=== PATIENT | female | born 1955 | race Caucasian/White ===

== ENCOUNTER → 2017-07-05 | Outpatient (CLI) | payer OTHER | END | disposition home or self-care (01) | LOC: LABPAT 14:03 | PROVIDERS: ATTEND Orthopaedic Surgery | DX: Z01.812 Encounter for preprocedural laboratory examination (principal) | CPT/HCPCS: 87070 ==

== ENCOUNTER → 2017-07-08 | Outpatient (CLI) | payer OTHER ==
[2017-07-08 14:25] LABS: Basophils # (A) 0.1 k/uL (0-0.2); Basophils % (A) 1 %; CH 30.3; Eosinophils # (A) 0.1 k/uL (0-0.7); Eosinophils % (A) 2 %; HDW 2.22; Luc % (Auto) 2; Lymphocytes # (A) 3.1 k/uL (1.0-4.8); Lymphocytes % (A) 44 %; MCHC 32.5 g/dL (31.0-37.0); MCV 92.3 fL (80.0-100.0); Mean Platelet Volume 7.1; Monocytes # (A) 0.4 k/uL (0-1.0); Monocytes % (A) 6 %; Neutrophils # (A) 3.2 k/uL (1.3-7.7); Neutrophils % (A) 46 %; RBC 4.66 m/uL (3.80-5.40); RDW 13.5 % (11.5-15.5); WBC 6.9 k/uL (3.8-10.6); WBC (Perox) 7.08
[2017-07-08 14:36] LABS: Partial Thromboplastin Time 22.2 sec (22.0-30.0); Prothrombin Time 10.1 sec (9.0-12.0)
[2017-07-08 14:52] LABS: Potassium 4.6 mmol/L (3.5-5.1)
== END | disposition home or self-care (01) ==
LOC: LABPAT 13:46
PROVIDERS: ATTEND Orthopaedic Surgery
DX: Z01.812 Encounter for preprocedural laboratory examination (principal); M16.12 Unilateral primary osteoarthritis, left hip; Z79.01 Long term (current) use of anticoagulants
CPT/HCPCS: 80051; 85025; 85610; 85730

== ENCOUNTER → 2017-07-08 | Outpatient (CLI) | payer OTHER ==
[2017-07-08 14:25] LABS: Appearance,Urine Clear (Clear); Bilirubin,Urine Negative (Negative); Glucose,Urine (UA) Negative (Negative); Ketones,Urine Negative (Negative); Leukocyte Esterase,Urine Negative (Negative); Nitrite,Urine Negative (Negative); Protein,Urine Negative (Negative); Specific Gravity,Urine 1.002 (1.001-1.035); UA Billing (MACRO vs. MICRO) CHEM; Urobilinogen,Urine <2.0 mg/dL (<2.0)
[2017-07-08 14:52] LABS: ALT 86 U/L (9-52); AST 36 U/L (14-36); Blood Urea Nitrogen 14 mg/dL (7-17); Non-African American GFR(MDRD) >60 (>60 ml/min/1.73 sqM)
== END | disposition home or self-care (01) ==
LOC: LABWHC1 13:49
PROVIDERS: ATTEND Internal Medicine
DX: Z01.812 Encounter for preprocedural laboratory examination (principal)
CPT/HCPCS: 36415; 81003; 82565; 84450; 84460; 84520

== ENCOUNTER → 2017-09-21 | Outpatient (CLI) | payer OTHER ==
[2017-09-21 13:18] LABS: Basophils # (A) 0.1 k/uL (0-0.2); Basophils % (A) 1 %; Eosinophils # (A) 0.1 k/uL (0-0.7); Eosinophils % (A) 2 %; HCT 42.7 % (34.0-46.0); Lymphocytes # (A) 3.3 k/uL (1.0-4.8); Lymphocytes % (A) 48 %; MCH 29.5 pg (25.0-35.0); MCHC 33.3 g/dL (31.0-37.0); MCV 88.6 fL (80.0-100.0); Mean Platelet Volume 6.7; Monocytes # (A) 0.3 k/uL (0-1.0); Monocytes % (A) 5 %; Neutrophils % (A) 43 %; Platelet Count 345 k/uL (150-450); RBC 4.82 m/uL (3.80-5.40); RDW 12.3 % (11.5-15.5); WBC 6.9 k/uL (3.8-10.6)
[2017-09-21 13:22] LABS: HGB 14.2 gm/dL (11.4-16.0)
[2017-09-21 13:31] LABS: Potassium 4.6 mmol/L (3.5-5.1)
[2017-09-21 13:37] LABS: Prothrombin Time 9.7 sec (9.0-12.0)
== END | disposition home or self-care (01) ==
LOC: LABPAT 12:40
PROVIDERS: ATTEND Orthopaedic Surgery
DX: Z01.812 Encounter for preprocedural laboratory examination (principal); M16.11 Unilateral primary osteoarthritis, right hip; Z79.01 Long term (current) use of anticoagulants
CPT/HCPCS: 36415; 80051; 85025; 85610; 85730; 87070

== ENCOUNTER 2017-10-03 05:42 | Inpatient (IN) | payer OTHER ==
--- NOTE | 2017-10-02 12:49 | HP ---
HISTORY AND PHYSICAL REASON FOR ADMISSION: Surgery is scheduled for 10/03/2017 Staci Evans is a 62-year-old patient seen with symptomatic right hip osteoarthritis. We discussed treatment options. She elected to proceed with right total hip arthroplasty. Consent regarding procedure was obtained. PAST MEDICAL HISTORY: Noncontributory. PAST SURGICAL HISTORY: Left total hip arthroplasty. MEDICATIONS: None reported. SOCIAL HISTORY: Smokes half pack cigarettes daily. PHYSICAL EXAMINATION: Evaluation right hip, there is a limited range of motion with significant pain. Positive hip impingement sign. Straight leg raise negative. Distal neurovascular exam is intact. RADIOGRAPHS: Radiographs of the right hip reveals severe osteoarthritis. IMPRESSION: 1. Right hip osteoarthritis. 2. Tobacco use. PLAN: Right total hip arthroplasty. Surgery scheduled for 10/03/2017. MMODL / IJN: [id number] /
[~2017-10-03 05:42] MED LIST: ACETAMINOPHEN TAB 500 MG TAB PO ONE; DEXAMETHASONE SOD PHOSPHATE 10 MG/ML 1 ML VIAL IV ONE; LACTATED RINGERS 1,000 ML IV SCH; MELOXICAM 7.5 MG TAB PO ONE; MIDAZOLAM 2 MG/2 ML VIAL IV PRN; MORPHINE SULFATE 4 MG/ML SYRINGE IV PRN; ONDANSETRON 4 MG/2 ML VIAL IVP ONE; SCOPOLAMINE 1.5MG/72HR PATCH TRANSDERM ONE; TRANEXAMIC ACID 1,000 MG in SODIUM CHLORIDE 0.9% 50 ML IVPB ONE; ceFAZolin IN SWFI 2 GM/20 ML SYRINGE IVP ONE
[2017-10-03] MEDS ORDERED: SODIUM CHLORIDE 0.9% 100 ML BAG ONE (07:25)
[2017-10-03] MEDS ORDERED: LIDOCAINE 1% INJ 10MG/ML (20 ML MDV) ONE (07:25)
[2017-10-03] MEDS ORDERED: GLYCOPYRROLATE 0.2 MG/ML 2 ML VIAL ONE (07:25)
[2017-10-03] MEDS ORDERED: TRANEXAMIC ACID 1,000 MG/10 ML VIAL ONE (07:25)
[2017-10-03] MEDS ORDERED: fentaNYL (PF) 50 MCG/ML 2 ML AMP ONE (07:25)
[2017-10-03] MEDS ORDERED: diphenhydrAMINE 50 MG/ML 1 ML VIAL ONE (07:25)
[2017-10-03] MEDS ORDERED: PROPOFOL 10 MG/ML 20 ML VIAL IV ONE (07:25)
[2017-10-03] MEDS ORDERED: MIDAZOLAM 2 MG/2 ML VIAL ONE (07:25)
[2017-10-03] MEDS ORDERED: PHENYLEPHRINE-0.9% NACL SYG 1 MG/10 ML SYRINGE ONE (07:25)
[2017-10-03] MEDS ORDERED: KETAMINE 10 MG/ML 20 ML VIAL ONE (07:25)
[2017-10-03] MEDS ORDERED: ROPIVACAINE 246.25 MG, EPINEPHrine 0.5 MG, KETOROLAC 30 MG, cloNIDine HCL/PF 80 MCG, WA... MISCELLANE ONE ×5 (07:29)
[2017-10-03] MEDS ORDERED: ceFAZolin 1,000 MG in SODIUM CHLORIDE 0.9% 1,000 ML IRRIGATION ONE (08:06)
[2017-10-03] MEDS ORDERED: LACTATED RINGERS 1,000 ML IV ONE (09:02)
--- NOTE | 2017-10-03 09:33 | FL ---
EXAMINATION TYPE: FL guidance operating room, XR Hip Limited RT DATE OF EXAM: 10/03/2017 CLINICAL HISTORY: Right hip replacement procedure. TECHNIQUE: Fluoroscopy. Limited intraoperative views right hip. COMPARISON: None. FINDINGS: Fluoroscopic guidance was provided during hip replacement procedure performed by Dr. Eneida veliz. A total of 27 seconds of fluoroscopic time was utilized during the procedure and 1 spot intrao perative image is acquired. Single image acquired shows metallic hardware from total right hip arthroplasty well seated on single frontal projection. IMPRESSION: As Above.
[2017-10-03] MEDS ORDERED: HYDROmorphone 0.5 MG/0.5 ML SYRINGE IVP PRN ×3 (09:43)
[2017-10-03] MEDS ORDERED: ONDANSETRON 4 MG/2 ML VIAL IVP PRN (09:43)
[2017-10-03] MEDS ORDERED: NALOXONE 0.4 MG/ML 1 ML VIAL IV PRN (09:43)
[2017-10-03] MEDS ORDERED: HYDROcodone/APAP 7.5-325MG 1 EACH TAB PO PRN ×2 (09:43)
--- NOTE | 2017-10-03 09:43 | P.OP ---
Date of Procedure: 10/03/17 Preoperative Diagnosis: Right hip osteoarthritis Postoperative Diagnosis: Right hip osteoarthritis Procedure(s) Performed: Direct anterior right total hip arthroplasty Implants: 1. Depuy Corail KA size 15 standard collar press-fit femoral stem 2. Depuy pinnacle 58 mm press-fit acetabular shell 3. Depuy pinnacle polyethylene acetabular liner +4 neutral 58 mm OD 36 mm ID 4. Biolox delta ceramic femoral head +5 36 mm Anesthesia: local, spinal Surgeon: Matthew Douglas [employer] Drafter #1: Javid Abrams Estimated Blood Loss (ml): 425 Pathology: other (Femoral head) Condition: stable Disposition: PACU Indications for Procedure: 62-year-old patient seen with symptomatic right hip osteoarthritis. After treatment options were discussed, she elected to proceed with total hip arthroplasty. Operative Findings: See description of procedure Description of Procedure: The patient was taken to the operative suite. Patient underwent a spinal anesthetic by the department of anesthesia. Patient was then transferred to the [place] table. Patient was given preoperative IV antibiotics and TXA. Both lower extremities were placed in standard leg spars. The hip was then prepped and draped in the normal sterile orthopedic fashion. A standard anterior incision was made beginning 3 cm lateral and 1 cm distal to the ASIS extending 10 cm. Dissection was then carried down through the subcutaneous soft tissues down to the fascia overlying the tensor fascia alirio. An incision was now made through the fascia. Careful dissection was taken down exposing the tensor fascia alirio muscle. A Cobra retractor was now placed along the medial femoral neck and a second one along the lateral femoral neck. The venous circumflex vessels were now identified, cauterized and clipped. We identified the anterior hip capsule. An incision was made through the hip capsule along the lateral border. Tag sutures were then placed along the anterior capsule and lateral capsule. We then performed a capsulotomy. Retractors were now placed around the femoral neck itself. A Cobra retractor was now placed along the anterior acetabulum. Good exposure was now noted of the femoral head/neck complex. Residual labrum was debrided out. We placed the extremity into 3 turns of fine traction. We were then able to introduce a skid in between the femoral head and acetabulum. A placed a awl into the femoral head. We took 2 turns of traction off the extremity. Rotation was now released. The femoral head was then dislocated without difficulty. Additional releasing was performed of the capsule. The head was then reduced. All traction was released. A femoral neck cut was now made with a sagittal saw. It was completed with an osteotome at the lateral neck area. The femoral head was now removed without difficulty. The extremity was now rotated to 60 of external rotation. It was locked in position. Residual labrum was now debrided out. Serial reaming was performed of the acetabulum. Once we reached the appropriate size and a trial was position and fit nicely. The appropriate size was now chosen opened and made available. The wound was irrigated with pulse lavage mechanical irrigation. It was introduced into the acetabulum without difficulty. The C-arm/fluoroscopy was now brought into the operative field. We made sure we had a true AP pelvic view. We now under direct C-arm/ fluoroscopy introduced into the acetabular component with appropriate version and inclination. It was well seated and stable. The C-arm was pulled back. An appropriate liner was introduced and clicked into position. It was felt to be stable. At this point retractors were removed. The extremity was now placed into 120 external rotation with no traction. The leg was now dropped to the ground and adducted. Appropriate retractors were now positioned along the proximal femur. We also placed our femoral look into position. Additional capsular releasing was performed to gain access to the proximal femur. We now used a box osteotome. A canal finder was now utilized. Serial broaching was now performed until we reached the appropriate size with good overall rotational stability. Appropriate calcar planing was performed. A trial head/ neck was placed into position. The hip was now reduced. The C-arm/fluoroscopy was brought back into the operative field. A spot film was obtained of the nonoperative hip. A spot film was obtained of the trial components. Overlays were performed, we noted good overall alignment and positioning for determining leg length. The C-arm/fluoroscopy was pulled back. Retractors were repositioned and the hip was dislocated. The leg was again taken down to the ground and adducted. Appropriate retractors were repositioned as well as the femoral hook. All trial components were removed. The femoral implant was opened along with the femoral head. The wound was irrigated with pulse lavage mechanical irrigation. The deep soft tissues were infiltrated local analgesic. The femoral implant was introduced with good purchase and fixation noted. The femoral head was introduced with good positioning and fixation noted. Retractors were now removed. The hip was now reduced. There appeared be good positioning of the hip. This was confirmed under direct fluoroscopy and spot films were obtained to document that. Bipolar cautery had been utilized intermittently through the procedure for hemostasis. A second gram of TXA was given. The wound was irrigated copiously with pulse lavage mechanical irrigation. The fascia was repaired with Vicryl suture. The subcutaneous soft tissues were repaired in layers with Vicryl suture. The skin was approximated with pernio/Dermabond. Sterile dressings were applied. Patient was then awakened, transferred to a bed and taken to recovery in stable condition. Ajay VILCHIS assisted with the procedure.
[2017-10-03] MEDS ORDERED: diphenhydrAMINE 50 MG/ML 1 ML VIAL IVP ONE (10:51)
[2017-10-03] MEDS: traMADol 50 MG TAB PO SCH ×3 (14:21→22:28)
[2017-10-03] MEDS: ceFAZolin IN SWFI 2 GM/20 ML SYRINGE IVP SCH ×2 (14:22→22:29)
--- NOTE | 2017-10-03 14:45 | P.CONS ---
History of Present Illness - Reason for Consult Consult date: 10/03/17 Medical management Requesting physician: Matthew Douglas - Chief Complaint Status post right total hip arthroplasty - History of Present Illness This is a 62-year-old female with a known past medical history of nicotine dependence and osteoarthritis. She continues to work on smoking cessation. She is down to a couple cigarettes a day. She is postop day #0 status post right total hip arthroplasty. Estimated blood loss 425 mL. No complications. Sitting up in bed comfortably. Pain is controlled. Denies any chest pain or shortness of breath. Denies any nausea or vomiting. Denies any bowel movement difficulties prior to admission. Denies any burning with urination prior to admission. We have been consulted for medical management Review of Systems Please refer to HPI otherwise unremarkable Past Medical History Past Medical History: Osteoarthritis (OA) History of Any Multi-Drug Resistant Organisms: None Reported Past Surgical History: Joint Replacement, Tonsillectomy Additional Past Surgical History / Comment(s): D&C , left hip replacement 2016, cosmetic facial surgery Past Anesthesia/Blood Transfusion Reactions: Postoperative Nausea & Vomiting ( PONV) Smoking Status: Current every day smoker - Past Family History Mother Family Medical History: Cancer Additional Family Medical History / Comment(s): lung Father Family Medical History: Cancer Medications and Allergies Home Medications Medication Instructions Recorded Confirmed Type traMADol HCl [Ultram] 50 mg PO Q6H PRN #30 tab 07/20/17 10/03/17 Rx Hydrocodone/Acetaminophen [Carefree 1 tab PO Q6HR PRN 10/03/17 10/03/17 History 5-325] Allergies Allergy/AdvReac Type Severity Reaction Status Date / Time No Known Allergies Allergy Verified 10/03/17 11:00 Physical Exam Vitals: Vital Signs Temp Pulse Resp BP Pulse Ox 10/03/17 13:45 60 16 92/67 95 10/03/17 12:34 56 L 16 104/64 95 10/03/17 12:00 53 L 14 98/61 94 L 10/03/17 11:45 96 18 154/76 98 10/03/17 11:30 53 L 14 114/71 99 10/03/17 11:00 61 16 113/72 98 10/03/17 10:44 65 16 113/68 95 10/03/17 10:30 62 15 110/68 98 10/03/17 10:15 62 18 106/66 96 10/03/17 10:00 58 L 10 L 93/55 100 10/03/17 09:45 96.8 F L 69 14 94/57 99 10/03/17 06:09 97.5 F L 64 16 106/62 99 Intake and Output 10/02/17 10/03/17 10/03/17 22:59 06:59 14:59 Intake Total 400 901 Output Total 425 Balance 400 476 Intake: IV 400 901 Output: Estimated Blood Loss 425 Head normocephalic Neck supple Lungs clear to auscultation bilaterally no wheezing or crackles Heart regular rate and rhythm S1-S2, no rub or gallop Abdomen is soft nontender nondistended positive bowel sounds no hepatosplenomegaly Extremities no edema. GABY hose in place. Pupils patient is able to wiggle toes. Dressing on the right hip is clean dry and intact Neuro alert and orientated to 3 Assessment and Plan Assessment: 1. Osteoarthritis of the right hip status post direct anterior right total hip arthroplasty with Dr. Douglas. Estimated blood loss 425 mL. Continue with pain medication per orthopedic protocol and continue Lovenox for DVT prophylaxis 2. Nicotine dependence: Discussed smoking cessation for greater than 3 minutes. Patient is smoking about 1-2 cigarettes a day. Refuses nicotine patch 3. Previous left total hip arthroplasty in July 2017 GI prophylaxis Pepcid and DVT prophylaxis Lovenox Check routine labs in a.m. Thank you for this consultation. We will continue to follow along during patient's hospitalization Time with Patient: Greater than 30 (Greater than 50% of the total time spent in counseling and coordination of care.I performed an examination of the patient and discussed their management with the physician [employer]. I have reviewed the Physician [employer]'s notes and agree with the documented findings and plan of care)
[2017-10-03 14:47] VITALS: BMI 27.3
[2017-10-03] MEDS: LACTATED RINGERS 1,000 ML IV SCH ×2 (18:52→22:30)
[2017-10-03] MEDS: SENNOSIDES-DOCUSATE SODIUM 1 EACH TAB PO SCH (22:29)
[2017-10-04 07:49] LABS: ALT 41 U/L (9-52); AST 62 U/L (14-36); Albumin 3.1 g/dL (3.5-5.0); Alkaline Phosphatase 71 U/L (38-126); Anion Gap 7 mmol/L; Blood Urea Nitrogen 10 mg/dL (7-17); Calcium 8.8 mg/dL (8.4-10.2); Carbon Dioxide 28 mmol/L (22-30); Chloride 105 mmol/L (98-107); Glucose 109 mg/dL (74-99); Potassium 4.4 mmol/L (3.5-5.1); Sodium 140 mmol/L (137-145); Total Bilirubin 0.3 mg/dL (0.2-1.3); Total Protein 5.1 g/dL (6.3-8.2)
[2017-10-04 08:06] LABS: Basophils % (A) 0 %; Eosinophils % (A) 0 %; HCT 31.3 % (34.0-46.0); Lymphocytes # (A) 2.9 k/uL (1.0-4.8); Lymphocytes % (A) 29 %; MCH 29.3 pg (25.0-35.0); MCV 88.6 fL (80.0-100.0); Mean Platelet Volume 6.8; Monocytes # (A) 0.6 k/uL (0-1.0); Monocytes % (A) 7 %; Neutrophils # (A) 6.2 k/uL (1.3-7.7); Neutrophils % (A) 63 %; Platelet Count 271 k/uL (150-450); RBC 3.54 m/uL (3.80-5.40); RDW 12.3 % (11.5-15.5); WBC 9.9 k/uL (3.8-10.6)
[2017-10-04 08:11] LABS: HGB 10.3 gm/dL (11.4-16.0)
[2017-10-04] MEDS: traMADol 50 MG TAB PO SCH ×4 (09:16→21:01)
--- NOTE | 2017-10-04 10:00 | P.PN ---
Subjective Progress Note Date: 10/04/17 This is a 62-year-old female with a known past medical history of nicotine dependence and osteoarthritis. She continues to work on smoking cessation. She is down to a couple cigarettes a day. She is postop day #0 status post right total hip arthroplasty. Estimated blood loss 425 mL. No complications. Sitting up in bed comfortably. Pain is controlled. Denies any chest pain or shortness of breath. Denies any nausea or vomiting. Denies any bowel movement difficulties prior to admission. Denies any burning with urination prior to admission. We have been consulted for medical management 10/04/2017 patient reports having pain in her right hip. When she takes her pain medication pain is around 5. Patient was able to sleep last night. She has been hypotensive with a blood pressure of 89/53. Repeat blood pressure shows and 97/60. She denies any dizziness or lightheadedness with standing. Fluids have been changed to normal saline at 100 mL an hour. She is not on any blood pressure medications. Her hemoglobin is 10.3. Patient is passing some gas. Denies any bowel movement. She denies any burning with urination denies any chest pain or shortness of breath. Objective - Vital Signs Vital signs: Vital Signs Temp 98.2 F 10/04/17 08:01 Pulse 91 10/04/17 08:01 Resp 17 10/04/17 08:01 BP 97/60 10/04/17 08:11 Pulse Ox 92 L 10/04/17 08:01 Intake & Output 10/03/17 10/04/17 10/04/17 18:59 06:59 18:59 Intake Total 901 240 Output Total 425 Balance 476 240 Weight 81.64 kg Intake: IV 901 Oral 240 Output: Estimated Blood Loss 425 Other: # Voids 1 1 - Exam Head normocephalic Neck supple Lungs clear to auscultation bilaterally no wheezing or crackles Heart regular rate and rhythm S1-S2, no rub or gallop Abdomen is soft nontender nondistended positive bowel sounds no hepatosplenomegaly Extremities no edema. Right hip dressing clean dry and intact Neuro alert and orientated to 3 - Labs CBC & Chem 7: 10/04/17 06:42 10/04/17 06:42 Labs: Abnormal Lab Results - Last 24 Hours (Table) 10/04/17 10/04/17 Range/Units 06:42 06:42 RBC 3.54 L (3.80-5.40) m/uL Hgb 10.3 L D (11.4-16.0) gm/dL Hct 31.3 L (34.0-46.0) % Glucose 109 H (74-99) mg/dL AST 62 H (14-36) U/L Total Protein 5.1 L (6.3-8.2) g/dL Albumin 3.1 L (3.5-5.0) g/dL Assessment and Plan Assessment: 1. Osteoarthritis of the right hip status post direct anterior right total hip arthroplasty with Dr. Douglas. Estimated blood loss 425 mL. Continue with pain medication per orthopedic protocol and continue Lovenox for DVT prophylaxis 2. Nicotine dependence: Discussed smoking cessation for greater than 3 minutes. Patient is smoking about 1-2 cigarettes a day. Refuses nicotine patch 3. Previous left total hip arthroplasty in July 2017 4. Hypotension: Likely reactive after surgery due to pain medications and anesthesia and possible hypovolemic. Patient reporting that she is very thirsty. We will place her on normal saline at 100 mL an hour and continue to monitor BP 5. Expected acute blood loss anemia after surgery. Hemoglobin is 10.3. Patient refusing iron supplement at this time because of side effects of flatulence. We'll repeat CBC in a.m. GI prophylaxis Pepcid and DVT prophylaxis Lovenox I performed an examination of the patient and discussed their management with the physician [employer]. I have reviewed the Physician Hal[employer] Operator's notes and agree with the documented findings and plan of care
[2017-10-04] MEDS ORDERED: HYDROcodone/APAP 5-325MG 1 EACH TAB PO PRN (12:04)
--- NOTE | 2017-10-04 12:07 | P.PN ---
Subjective Progress Note Date: 10/04/17 Principal diagnosis: Status post right total hip arthroplasty Patient seen today resting in her hospital chair, she appears comfortable. She' s ambulated with therapy. Her pain is controlled. She denies any headaches, lightheadedness, chest pain or shortness of breath. Objective - Vital Signs Vital signs: Vital Signs Temp 98.2 F 10/04/17 08:01 Pulse 91 10/04/17 08:01 Resp 17 10/04/17 08:01 BP 97/60 10/04/17 08:11 Pulse Ox 92 L 10/04/17 08:01 Intake & Output 10/03/17 10/04/17 10/04/17 18:59 06:59 18:59 Intake Total 901 240 Output Total 425 Balance 476 240 Weight 81.64 kg Intake: IV 901 Oral 240 Output: Estimated Blood Loss 425 Other: # Voids 1 1 - Exam Right lower extremity: Incision is clean, dry, and intact. The prineo tape is in good condition. There is minimal soft tissue swelling and ecchymosis surrounding the medial and lateral aspects of the incision. Calf is soft, no tenderness with palpation. Plantar flexion, dorsiflexion, EHL, FHL are intact. Sensory exam to light touch throughout the extremity is intact, dorsal pedis pulses 2+. - Labs CBC & Chem 7: 10/04/17 06:42 10/04/17 06:42 Labs: Abnormal Lab Results - Last 24 Hours (Table) 10/04/17 10/04/17 Range/Units 06:42 06:42 RBC 3.54 L (3.80-5.40) m/uL Hgb 10.3 L D (11.4-16.0) gm/dL Hct 31.3 L (34.0-46.0) % Glucose 109 H (74-99) mg/dL AST 62 H (14-36) U/L Total Protein 5.1 L (6.3-8.2) g/dL Albumin 3.1 L (3.5-5.0) g/dL Assessment and Plan Plan: Assessment: 1. Postop day #1 status post right total hip arthroplasty Plan: 1. Pain control, continue supportive oral medications 2. Daily dressing changes/ice the hip 3. GI and DVT prophylaxis, continue Lovenox during inpatient stay 4. Encourage incentive spirometer 5. Medical recommendations 6. Discharge planning: Patient will be likely discharged home tomorrow Time with Patient: Less than 30
--- NOTE | 2017-10-04 12:09 | P.DS ---
Providers Date of admission: 10/03/17 05:42 Expected date of discharge: 10/05/17 Attending physician: Matthew Douglas Consults: 10/03/17 09:43 Consult Physician Routine Consulting Provider: Marcelo Dacosta Consult Reason/Comments: Medical management Do you want consulting provider notified?: Yes Primary care physician: Luis Enrique Trujillo Hospital Course: Date of admission: 10/03/2017 Date of discharge: 10/05/2017 Admission diagnosis: Status post right total hip arthroplasty Discharge diagnosis: Same Attending physician: Dr. Douglas Surgical procedures: Right total hip arthroplasty Brief history: Patient is a 62-year-old female with a history of progressive primary right hip osteoarthritis. At this point patient has failed conservative treatment measures and has opted to proceed with a elective right total hip arthroplasty. Hospital course: Details of patient's surgery can be found in operative report. Patient tolerated the procedure well and was subsequently transported to orthopedic floor. Patient's orthopeidc and medical care was provided daily. Patient had daily laboratory tests performed for evaluation of overall blood counts. Patient had daily physical therapy to include strengthening range of motion as well as education with walker ambulation. Patient was treated with Lovenox for their postoperative DVT prophylaxis during their inpatient stay. Patient was noted to have a relatively uneventful postoperative course. Patient reported satisfactory pain control with oral pain medications by postoperative day 0. Patient showed satisfactory progress with physical therapy. Patient moved steadily through the program and had no difficulty meeting the goals by postoperative day 2. Given patient's otherwise satisfactory course and having met physical therapy goals, plan is to discharge patient home on postoperative day 2. Discharge condition/disposition: Patient will be discharged home in stable condition. Discharge medications: Instructions are given on resumption of patient's normal daily medications per primary care recommendation, in addition patient will be prescribed [place] 5 mg/325 mg, aspirin 325 mg. Discharge instructions: 1. Wound care and infection precautions, keep incision dry and covered while showering, no lotions, creams, moisturizers. No soaking, tubs, pools, hottubs. Do not scrub over the incision. 2. Weight-bear as tolerated with walker / cane until follow-up. 3. Ice and elevate when necessary. Do not exceed 20 minutes per hour with ice pack. 4. Utilize compression sleeve until seen at first follow up appointment. 5. Visiting nursing care. 6. Home physical therapy including home CPM. 7. Pain meds and anticoagulants per prescription. 8. Pain medication has potential to cause constipation. Increase oral fluid and fiber intake. Contact primary care provider if you have not had a bowel movement within 48 hours after discharge 9. No anti-inflammatory medication until discussed at first post operative visit, this including Motrin, Aleve, Mobic, Diclofenac. 10. Follow up in office at 2 weeks postop with Ajay Abrams PA-C 11. Follow up with your primary care doctor 7-10 days after discharge. 12. Contact [facility] with any questions, . Procedures: Right total hip arthroplasty Patient Condition at Discharge: Good Plan - Discharge Summary Discharge Rx Participant: No New Discharge Prescriptions: New Aspirin 325 mg PO BID #60 tab Hydrocodone/Acetaminophen [[place] 5-325] 1 - 2 each PO Q6HR PRN #40 tab PRN Reason: Pain Discontinued Hydrocodone/Acetaminophen [[place] 5-325] 1 tab PO Q6HR PRN PRN Reason: Pain No Action traMADol HCl [Ultram] 50 mg PO Q6H PRN #30 tab PRN Reason: Pain Discharge Medication List traMADol HCl [Ultram] 50 mg PO Q6H PRN #30 tab 07/20/17 [Rx] Aspirin 325 mg PO BID #60 tab 10/05/17 [Rx] Hydrocodone/Acetaminophen [[place] 5-325] 1 - 2 each PO Q6HR PRN #40 tab 10/05/17 [Rx] Follow up Appointment(s)/Referral(s): Matthew Douglas DO [Doctor of Osteopathic Medicine] - 10/19/17 2:30 pm [facility], [REFERRING] - Activity/Diet/Wound Care/Special Instructions: Orthopedic Discharge Instructions: 1. Wound care and infection precautions, keep incision dry and covered while showering, no lotions, creams, moisturizers. No soaking, pools, hot tubs. Do not scrub over incision. 2. Weight-bear as tolerated with walker / cane until follow-up. 3. Ice and elevate when necessary. Do not exceed 20 minutes per hour with ice pack. 4. Utilize compression sleeve until seen at first follow up appointment. 5. Visiting nursing care. 6. Home physical therapy. 7. Pain meds and anticoagulants per prescription. 8. Pain medication has potential to cause constipation. Increase oral fluid and fiber intake. Contact primary care provider if you have not had a bowel movement within 48 hours after discharge. 9. No anti-inflammatory medication until discussed at first post operative visit, this including Motrin, Aleve, Mobic, Diclofenac. 10. Follow up in office at 2 weeks postop with Ajay Abrams PA-C 11. Follow up with your primary care doctor 7-10 days after discharge. 12. Contact [facility] with any questions, . Discharge Disposition: HOME WITH HOME HEALTH SERVICES
[2017-10-04] MEDS: hydrOXYzine PAMOATE 25 MG CAP PO PRN ×3 (12:32→22:47)
[2017-10-04] MEDS: HYDROcodone/APAP 5-325MG 1 EACH TAB PO PRN ×3 (12:32→22:46)
[2017-10-04] MEDS: MELOXICAM 7.5 MG TAB PO SCH (12:32)
[2017-10-04] MEDS: FAMOTIDINE 20 MG TAB PO SCH (12:32)
[2017-10-04] MEDS: ENOXAPARIN 40 MG/0.4 ML SYRINGE SQ SCH (12:33)
[2017-10-04] MEDS ORDERED: HYDROmorphone 2 MG TAB PO PRN ×2 (15:50→15:51)
[2017-10-04] MEDS ORDERED: HYDROmorphone 4 MG TABLET PO PRN (15:51)
[2017-10-04] MEDS: SODIUM CHLORIDE 0.9% 1,000 ML IV SCH ×2 (19:28→21:00)
[2017-10-04] MEDS: SENNOSIDES-DOCUSATE SODIUM 1 EACH TAB PO SCH (19:37)
[2017-10-04 20:35] VITALS: RESP 16
[2017-10-05] MEDS: hydrOXYzine PAMOATE 25 MG CAP PO PRN (04:09)
[2017-10-05] MEDS: HYDROcodone/APAP 5-325MG 1 EACH TAB PO PRN ×2 (04:10→12:37)
[2017-10-05] MEDS: SODIUM CHLORIDE 0.9% 1,000 ML IV SCH (05:50)
[2017-10-05 08:15] LABS: Basophils % (A) 0 %; Eosinophils # (A) 0.1 k/uL (0-0.7); Eosinophils % (A) 1 %; HCT 29.7 % (34.0-46.0); HGB 9.8 gm/dL (11.4-16.0); Lymphocytes # (A) 2.9 k/uL (1.0-4.8); Lymphocytes % (A) 33 %; MCH 29.2 pg (25.0-35.0); MCHC 32.9 g/dL (31.0-37.0); MCV 88.8 fL (80.0-100.0); Mean Platelet Volume 6.9; Monocytes # (A) 0.7 k/uL (0-1.0); Monocytes % (A) 7 %; Neutrophils % (A) 57 %; Platelet Count 257 k/uL (150-450); RBC 3.35 m/uL (3.80-5.40); RDW 12.3 % (11.5-15.5); WBC 8.9 k/uL (3.8-10.6)
[2017-10-05] MEDS: ENOXAPARIN 40 MG/0.4 ML SYRINGE SQ SCH (08:25)
[2017-10-05] MEDS: FAMOTIDINE 20 MG TAB PO SCH (08:26)
[2017-10-05] MEDS: MELOXICAM 7.5 MG TAB PO SCH (08:26)
[2017-10-05 08:32] LABS: ALT 46 U/L (9-52); AST 68 U/L (14-36); Alkaline Phosphatase 84 U/L (38-126); Anion Gap 7 mmol/L; Blood Urea Nitrogen 7 mg/dL (7-17); Calcium 8.6 mg/dL (8.4-10.2); Carbon Dioxide 29 mmol/L (22-30); Chloride 104 mmol/L (98-107); Glucose 99 mg/dL (74-99); Potassium 3.9 mmol/L (3.5-5.1); Sodium 140 mmol/L (137-145); Total Bilirubin 0.4 mg/dL (0.2-1.3); Total Protein 5.1 g/dL (6.3-8.2)
[2017-10-05] MEDS: traMADol 50 MG TAB PO SCH (09:42)
[2017-10-05 10:25] VITALS: BP 99/61; PULSE 89; TEMP 98.6
--- NOTE | 2017-10-05 11:51 | P.PN ---
Subjective Progress Note Date: 10/05/17 Principal diagnosis: Status post right total hip arthroplasty Patient seen today resting in her hospital chair, she appears comfortable. She' s ambulated with therapy. Her pain is controlled. She denies any headaches, lightheadedness, chest pain or shortness of breath. Objective - Vital Signs Vital signs: Vital Signs Temp 98.6 F 10/05/17 07:00 Pulse 89 10/05/17 07:00 Resp 16 10/05/17 07:00 BP 99/61 10/05/17 07:00 Pulse Ox 96 10/05/17 07:00 Intake & Output 10/04/17 10/05/17 10/05/17 18:59 06:59 18:59 Intake Total 1077 960 220 Balance 1077 960 220 Intake: Oral 1077 220 Other 960 Other: # Voids 1 3 - Exam Right lower extremity: Incision is clean, dry, and intact. The prineo tape is in good condition. There is minimal soft tissue swelling and ecchymosis surrounding the medial and lateral aspects of the incision. Calf is soft, no tenderness with palpation. Plantar flexion, dorsiflexion, EHL, FHL are intact. Sensory exam to light touch throughout the extremity is intact, dorsal pedis pulses 2+. - Labs CBC & Chem 7: 10/05/17 07:30 10/05/17 07:30 Labs: Abnormal Lab Results - Last 24 Hours (Table) 10/05/17 10/05/17 Range/Units 07:30 07:30 RBC 3.35 L (3.80-5.40) m/uL Hgb 9.8 L (11.4-16.0) gm/dL Hct 29.7 L (34.0-46.0) % AST 68 H (14-36) U/L Total Protein 5.1 L (6.3-8.2) g/dL Albumin 3.0 L (3.5-5.0) g/dL Assessment and Plan Plan: Assessment: 1. Postop day #2 status post right total hip arthroplasty Plan: 1. Pain control, continue supportive oral medications 2. Daily dressing changes/ice the hip 3. GI and DVT prophylaxis, patient will be discharged on aspirin 325 mg twice 4. Encourage incentive spirometer 5. Medical recommendations 6. Discharge planning: Patient will be discharged home today Time with Patient: Less than 30
== END 2017-10-05 13:15 | disposition home health service (06) | DRG 470 ==
LOC: 2ORMAIN 05:42 → 3SUR 14:01
PROVIDERS: ADMIT Orthopaedic Surgery; ATTEND Orthopaedic Surgery
PROC: 0SR904A Replacement of Right Hip Joint with Ceramic on Polyethylene Synthetic Substitute, Uncemented, Open Approach (ICD-10-PCS; principal; 2017-10-03 07:30)
DX: M16.11 Unilateral primary osteoarthritis, right hip (principal); I95.89 Other hypotension; D62 Acute posthemorrhagic anemia; Z96.642 Presence of left artificial hip joint; F17.210 Nicotine dependence, cigarettes, uncomplicated; Z71.6 Tobacco abuse counseling; Z90.89 Acquired absence of other organs; Z80.1 Family history of malignant neoplasm of trachea, bronchus and lung; Z79.899 Other long term (current) drug therapy; Z79.891 Long term (current) use of opiate analgesic
CPT/HCPCS: 73501; 80053; 85025; 86850; 86900; 86901; 88300